=== PATIENT | female | born 1950 | race Caucasian/White ===

== ENCOUNTER 2020-03-17 10:16 | Emergency (ER) | payer MEDICARE, MEDICAID, SELFPAY ==
[2020-03-17] VITALS (14 sets, daily range): BP systolic 138–151; BP diastolic 74–85; PULSE 87–105; RESP 14–23; TEMP 37; O2SAT 95–98
--- NOTE | 2020-03-17 10:15 | RT.EKG_ITS ---
APPROVED REPORT Exam: Resting ECG Patient Location: E HR:92 bpm ECG Measurements Heart Rate 92 AXIS DE 166 P 47 QRSd 92 QRS 18 QT 335 T 26 QTc 416 Conclusion Sinus rhythm...normal P axis, V-rate 60- 99. S1Q3T3. No STEMI. I have reviewed and interpreted ECG and agree with software generated interpretation.
--- NOTE | 2020-03-17 10:17 | ED.GENADUL_ITS ---
Discharge Plan Disposition Patient Disposition: HOME Condition: Stable Discharge Details Clinical Impression: Dyspnea on exertion, Chronic shortness of breath Primary Care Provider: Kaycee Bess ED Provider: Meri Schofield Home Meds and New Rx's Prescriptions: Continued albuterol sulfate 2.5 mg /3 mL (0.083 %) Solution For Nebulization 2.5 mg continuous nebulization PRN PRNRF: 0 atorvastatin 80 mg Tablet 80 mg PO DAILY RF: 0 furosemide [Lasix] 20 mg Tablet 20 mg PO DAILY RF: 0 acetaminophen 650 mg Tablet Extended Release 650 mg PO PRN PRNRF: 0 oxycodone-acetaminophen 5-325 mg Tablet 1 tab PO QID RF: 0 calcium carbonate-vitamin D2 600 mg calcium- 200 unit Tablet 2 tab PO DAILY RF: 0 exemestane 25 mg Tablet 25 mg PO DAILY RF: 0 Afinitor 10 mg Tablet 10 mg PO DAILY RF: 0 Discharge Instructions Instructions: Dyspnea (ED) Additional Instructions: Drink plenty of fluids and get plenty of rest. Follow-up with your primary care doctor and oncologist in 1 week. Return to the emergency department with any worsening or new concerning symptoms. Discharge Data Discharge Physician: Meri Schofield Medical Decision Making 1105 -- 69-year-old female with a history of metastatic breast cancer and uterine cancer with history of mastectomy and hysterectomy presents for dyspnea on exertion for the past few weeks. EKG notes a rate of 92, sinus, S1Q3T3, no STEMI. Heart rate 90s. She is afebrile and appears nontoxic. Her lungs are clear. She has chronic bilateral lower extremity edema, pitting on the right and nonpitting on left. We will check screening labs, CT chest to rule out PE. 1230 --labs and imaging reviewed and negative for acute findings. Troponin negative. CT chest notes chronic findings of bone, lung and liver mets. There is a small right pleural effusion. No PE, pneumonia. Patient reassessed and she is requesting to go home. Advised to follow-up with her primary care doctor and oncologist for reevaluation. Usual and customary return precautions given prior to discharge. Medical Records Medical records reviewed: Yes I reviewed the patient's medical records. Imaging Data Radiologic Study: Radiologist's impression: CT CHEST PE CTA CLINICAL HISTORY: sob, h/o breast cancer, r/o PE. TECHNIQUE: Imaging Protocol: Axial CT angiography was performed with multi- slice acquisition and multi-planar and/or 3D reconstructions. CONTRAST MATERIAL: Intravenous: Omnipaque 350 Contrast volume:structured data in ml COMPARISON: No exams were available for comparison FINDINGS: CT angiography of the chest was performed with intravenous infusion of 100 cc of Omnipaque 350. There are widespread sclerotic lesions in all the visualized bones, consistent with known metastases from breast carcinoma. There is a small right pleural effusion and there are areas of apparent bilateral pleural thickening, the patient also reportedly has intrathoracic metastatic disease. Multiple small areas of nodularity are present on the pleural surface, likely metastasis. Otherwise lungs are clear.. Tracheobronchial tree appears intact.. No evidence of pulmonary embolic disease. Thoracic aorta is of normal diameter, no thoracic aortic aneurysm or dissection, diminutive right vertebral artery noted, otherwise major branch vessels appear intact. No mediastinal or hilar adenopathy. There are questionable areas of decreased attenuation in right hepatic lobe, if clinically appropriate additional evaluation with multiphasic CT may be obtained to rule out hepatic metastatic disease. IMPRESSION: No evidence of pulmonary embolic disease. Widespread bony and pleural metastatic disease. Question hepatic metastatic lesions, additional evaluation with CT or MRI may be obtained if clinically appropriate. Lab Data Lab results reviewed: Yes I reviewed the patient's lab results. Labs: Laboratory Tests Range/Units 03/17/20 03/17/20 03/17/20 10:55 10:55 10:55 WBC (4.4-10.8) 10^3/uL 5.31 RBC (3.93-5.22) 10^6/uL 3.10 L Hgb (11.2-15.7) g/dL 11.1 L Hct (36.0-46.0) % 33.5 L MCV (80-95) fL 108.1 H MCH (27.0-33.0) pg 35.8 H MCHC (32.0-36.0) % 33.1 RDW (11.7-14.6) % 14.8 H Plt Count (130-400) 10^3/uL 170 MPV (8.0-11.0) fL 9.8 Immature Gran % 0.4 Neutrophils % 69.4 Lymphocytes % 16.6 Monocytes % 11.3 Eosinophils % 2.1 Basophils % 0.2 Nucleated RBC % % 0 Absolute Neutrophils (1.2-6.7) 10^3/uL 3.69 Absolute Lymphocytes (1.2-3.4) 10^3/uL 0.88 L Absolute Monocytes (0.1-0.8) 10^3/uL 0.60 Absolute Eosinophils (0.0-0.7) 10^3/uL 0.11 Absolute Basophils (0.0-0.2) 10^3/uL 0.01 RBC Morphology See below Poikilocytosis 1+ Macrocytosis 2+ PT (9.3-11.0) sec 11.3 H INR (0.9-1.1) 1.1 APTT (21.0-27.5) sec 21.9 Sodium (136-145) mmol/L 142 Potassium (3.5-5.1) mmol/L 3.5 Chloride (98-107) mmol/L 108 H Carbon Dioxide (21.0-32.0) mmol/L 23.2 Anion Gap (3-11) mmol/L 10.8 BUN (7-18) mg/dL 20 H Creatinine (0.55-1.02) mg/dL 1.14 H Estimated GFR/1.73 m2 (mL/min/1.73m2) 46.99 Glucose (74-106) mg/dL 121 H Calcium (8.5-10.1) mg/dL 9.4 Magnesium (1.8-2.4) mg/dL 1.7 L Total Bilirubin (0.2-1.0) mg/dL 0.6 AST (15-37) U/L 25 ALT (14-59) U/L 25 Alkaline Phosphatase (46-116) U/L 69 Troponin I (<0.06) ng/mL < 0.05 Total Protein (6.4-8.2) g/dL 7.4 Albumin (3.4-5.0) g/dL 3.0 L ECG Data Attestation: I personally reviewed and interpreted this ECG (s) as follows: Interpretation: #1 -- Rate of 92, sinus, no acute ST elevation or depression. S1Q3T3. MT 166. QRS 92. QTc 416. HPI General Mode of arrival: ambulatory . Date/Time Provider Initiated Documentation: 03/17/20 10:16 . Limitations to Documentation: no limitations . Information obtained by: patient . HPI Narrative: Pt is a 69yo F with a history of uterine cancer treated with hysterectomy, and metastatic breast cancer with history of bilateral mastectomy who presents for dyspnea on exertion for the past 2 weeks. Patient is currently under 2 medications for her breast cancer and being followed by Dr. Sullivan at the cancer center. She was there today for routine follow-up and informed him of her progressive dyspnea on exertion and he referred her up here when she was found to have HR 110s for further evaluation to rule out PE. Patient denies any fever, cough, chest pain, nausea, vomiting, dizziness, recent travel, recent known exposure to coronavirus. She has chronic leg swelling and states this is no worse than usual and denies any calf pain. Related Data Home Medications Medication Instructions Recorded Confirmed Afinitor 10 mg PO DAILY 03/17/20 03/17/20 acetaminophen 650 mg PO PRN PRN 03/17/20 03/17/20 albuterol sulfate 2.5 mg CONTINUOUS NEBULIZATION PRN 03/17/20 03/17/20 PRN atorvastatin 80 mg PO DAILY 03/17/20 03/17/20 calcium carbonate-vitamin D2 2 tab PO DAILY 03/17/20 03/17/20 exemestane 25 mg PO DAILY 03/17/20 03/17/20 furosemide [Lasix] 20 mg PO DAILY 03/17/20 03/17/20 oxycodone-acetaminophen 1 tab PO QID 03/17/20 03/17/20 Allergies Allergy/AdvReac Type Severity Reaction Status Date / Time No Known Allergies Allergy Unverified 03/17/20 10:28 Review of Systems All systems reviewed & are unremarkable except as noted in HPI and below Constitutional Constitutional: Reports as per HPI, Denies chills and Denies fever(s) Eyes Eyes: Denies blurry vision ENT Ears, Nose, Mouth, and Throat: Denies dizziness, Denies sore throat and Denies throat swelling Cardiovascular Cardiovascular: Denies chest pain and Reports dyspnea Respiratory Respiratory: Denies cough and Reports dyspnea Gastrointestinal Gastrointestinal: Denies abdominal pain, Denies diarrhea and Denies vomiting Genitourinary Genitourinary: Denies hematuria and Denies dysuria Musculoskeletal Musculoskeletal: Denies back pain and Denies numbness Integumentary/Breasts Skin/Breast: Denies lesions and Denies rash Neurologic Neurologic: Denies dizziness, Denies localized weakness and Denies numbness Allergic/Immunologic Allergic/Immunologic: Denies throat swelling PFSH Medical History (Updated 03/17/20 @ 12:09 by Meri Schofield DO) Hx of hyperlipidemia 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 Metastatic breast cancer Uterine cancer Surgical History (Updated 03/17/20 @ 10:57 by Meri Schofield DO) H/O hernia repair History of bilateral mastectomy History of hysterectomy for cancer Social History Smoking/Tobacco Use Status: Never Smoking risk assessment performed?: Yes Alcohol Intake: never Drug use: Never Substance use type: does not use Do you feel safe at home: Yes Do you feel safe in your relationship?: Yes Exam Const General: cooperative and no acute distress Orientation: alert, awake and oriented x3 HENMT Head: normal to inspection Face and sinus: normal facial exam Eyes General: appearance normal, both eyes and all related structures EOM: EOM intact bilaterally Neck Neck: normal visual inspection and No submandibular swelling Lymphatic: no lymphadenopathy noted Chest Chest: normal inspection of the chest and no tenderness Resp Effort & Inspection: normal respiratory effort and able to speak in complete sentences Auscultation: clear to auscultation bilaterally Cardio Rate: regular rate Rhythm: regular rhythm GI Inspection: normal to inspection Palpation: soft, not firm, not rigid and nontender Auscultation: normal bowel sounds Skin General skin exam: no rashes or lesions noted Neuro General: patient alert, patient awake and patient oriented x3 Cognition: normal cognition Speech: speech normal Motor: muscle tone normal throughout Sensory Exam: no sensory deficits noted Extrem General: full ROM, capillary refill normal, no calf tenderness bilaterally and edema (significant, worse on R, 1+ pitting on R, nonpitting on L) Psych Appearance: grossly normal Mental Status: mental status grossly normal Speech and Movement: speech and movement normal Affect: normal affect
--- NOTE | 2020-03-17 10:45 | DI.CT_ITS ---
EXAM: CT CHEST PE CTA CLINICAL HISTORY: sob, h/o breast cancer, r/o PE. TECHNIQUE: Imaging Protocol: Axial CT angiography was performed with multi-slice acquisition and mu lti-planar and/or 3D reconstructions. CONTRAST MATERIAL: Intravenous: Omnipaque 350 Contrast volume:structured data in ml COMPARISON: No exams were available for comparison FINDINGS: CT angiography of the chest was performed with intravenous infusion of 100 cc of Omnipaque 350. There are widespread sclerotic lesions in all the visualized bones, consistent with known metastases from breast carcinoma. There is a small right pleural effusion and there are areas of apparent bilat eral pleural thickening, the patient also reportedly has intrathoracic metastatic disease. Multiple small areas of nodularity are present on the pleural surface, likely metastasis. Otherwise lungs are clear.. Tracheobronchial tree appears intact.. No evidence of pulmonary embolic disease. Thoracic aorta is of normal diameter, no thoracic aortic an eurysm or dissection, diminutive right vertebral artery noted, otherwise major branch vessels appear intact. No mediastinal or hilar adenopathy. There are questionable areas of decreased attenuation in right hepatic lobe, if clinically appropriat e additional evaluation with multiphasic CT may be obtained to rule out hepatic metastatic disease. IMPRESSION: No evidence of pulmonary embolic disease. Widespread bony and pleural metastatic disease. Question hepatic metastatic lesions, additional evaluation with CT or MRI may be obtained if clinical ly appropriate. RADIATION DOSE DELIVERED: 636.45mGy.cm Total DLP 636.45mGy.cm Total DLP DATA REPOSITORY: All CT scans at this facility are submitted to the National Radiology Data Registry (NRDR) Dose Index Registry (DIR) with the [employer] ([employer]). RADIATION OPTIMIZATION: All CT scans at this facility use at least one of these dose optimization te chniques: automated exposure control; mA and/or kV adjustment per patient size (includes targeted exa ms where dose is matched to clinical indication); or iterative reconstruction.
[2020-03-17 11:12] LABS: Abs Immature Grans 0.02 10^3/uL (0.0-0.06); Absolute Basophil Count 0.01 10^3/uL (0.0-0.2); Absolute Eosinophil Count 0.11 10^3/uL (0.0-0.7); Absolute Lymphocyte Count 0.88 10^3/uL (1.2-3.4); Absolute Neutrophil Count 3.69 10^3/uL (1.2-6.7); Basophils % 0.2; Eosinophils % 2.1; HCT 33.5 % (36.0-46.0); HGB 11.1 g/dL (11.2-15.7); Immature Grans % 0.4; Lymphocytes % 16.6; MCH 35.8 pg (27.0-33.0); MCHC 33.1 % (32.0-36.0); MCV 108.1 fL (80-95); MPV 9.8 fL (8.0-11.0); Monocytes % 11.3; Neutrophils % 69.4; Nucleated RBC 0 %; Platelet Count 170 10^3/uL (130-400); RDW 14.8 % (11.7-14.6); RDW-SD 59.4 fL; WBC 5.31 10^3/uL (4.4-10.8)
[2020-03-17 11:19] LABS: INR 1.1 (0.9-1.1); PTT Activated 21.9 sec (21.0-27.5); Prothrombin Time 11.3 sec (9.3-11.0)
[2020-03-17 11:23] LABS: ALT 25 U/L (14-59); AST 25 U/L (15-37); Alkaline Phosphatase 69 U/L (46-116); Anion Gap 10.8 mmol/L (3-11); BUN 20 mg/dL (7-18); Bilirubin, Total 0.6 mg/dL (0.2-1.0); CO2 23.2 mmol/L (21.0-32.0); CREATININE 1.14 mg/dL (0.55-1.02); Calcium 9.4 mg/dL (8.5-10.1); Chloride 108 mmol/L (98-107); Estimated GFR 46.99 (mL/min/1.73m2); Glucose 121 mg/dL (74-106); Magnesium 1.7 mg/dL (1.8-2.4); Potassium 3.5 mmol/L (3.5-5.1); Sodium 142 mmol/L (136-145); Total Protein 7.4 g/dL (6.4-8.2)
[2020-03-17] MEDS: Normal Saline 1,000 ML 1000 ML IV (11:23)
[2020-03-17 11:25] LABS: Troponin I < 0.05 ng/mL (<0.06)
[2020-03-17 11:47] LABS: Diff Comment Diff Reviewed; Macrocytosis 2+; Poikilocytes 1+
[2020-03-17] MEDS: Omnipaque 350 MG/ML 100 ML BTL IJ (12:05)
[2020-03-17] MEDS: Normal Saline - Diluent 50 ML VIAL IV (12:05)
[2020-03-17] MEDS: Normal Saline Flush 10 ML SYR IVP (12:06)
== END 2020-03-17 12:57 | disposition home or self-care (01) ==
PROVIDERS: Emergency Provider Physician Assistant; PCP Family Medicine
DX: R06.09 Other forms of dyspnea (principal); R06.02 Shortness of breath; Z85.3 Personal history of malignant neoplasm of breast; Z85.42 Personal history of malignant neoplasm of other parts of uterus
CPT/HCPCS: 36415; 71275; 80053; 93005; 99285; 83735; 84484; 85025; 85610; 85730; 93010; J3490